=== PATIENT | female | born 1985 | race African-American/Black ===

== ENCOUNTER 2018-01-22 15:50 | Emergency (ER) | payer SELFPAY ==
[~2018-01-22] VITALS: Ht 167.6 cm; Wt 99.8 kg
== END 2018-01-22 16:40 | disposition left against medical advice (07) ==
LOC: ER 15:50
DX: N64.4 Mastodynia (principal)

== ENCOUNTER 2018-03-11 21:16 | Emergency (ER) | payer SELFPAY ==
[~2018-03-11] VITALS: Ht 167.6 cm; Wt 99.8 kg
== END 2018-03-11 21:35 | disposition left against medical advice (07) ==
LOC: ER 21:16
DX: M79.675 Pain in left toe(s) (principal)